=== PATIENT | female | born 1980 | race Caucasian/White ===

== ENCOUNTER → 2021-07-30 | Outpatient (CLI) | payer MEDICARE, SELFPAY | END | disposition home or self-care (01) | PROVIDERS: Referring Provider Physician Assistant; Visit Provider Physician Assistant | DX: R05.9 Cough, unspecified (principal) | CPT/HCPCS: 87635; U0005; U0003 ==

== ENCOUNTER 2023-05-07 17:29 | Emergency (ER) | payer MEDICARE, MEDICAID, SELFPAY ==
[2023-05-07 17:30] VITALS: BP 106/68; PULSE 91; RESP 16; TEMP 36.6; O2SAT 98; BMI 21.8
[2023-05-07] MEDS: Lidocaine Jelly 2% 20 ML Syringe (URO-JET) 1 APPLIC TOPICAL (20:58)
--- NOTE | 2023-05-07 21:27 | EX.ED.DYSGE1 ---
HPI History of Present Illness Chief Complaint: Rash Informant: patient Onset/Context/Timing Onset: Days (3) Context: Gradual Onset Timing: Continuous Quality: Burning Location: Genitals Worsened by: Palpation Relieved by: Nothing Narrative Narrative: Patient presents with soreness to her external genitalia that has been getting worse over the last 3 days. Patient [facility]. Patient states she was prescribed imiquimod to be placed topically. Patient states she used this once. Patient states that her external genitals became reddened and painful. Patient states they started to open up. Patient denies any discharge or drainage. Patient admits to some burning pain. Patient also admits to some burning with urination. Patient admits to some abdominal cramping and nausea. Patient denies any fevers or chills. [facility] Medical History (Updated 05/07/23 @ 22:[address] Everardo Zhao DO) HPV (human papilloma virus) infection Medical History no medical history Home Medications azithromycin 250 mg tablet (Zithromax Z-Slim) See Rx Instructions PO .COMPLEX #6 tabs 07/30/21 [Rx Last Taken Unknown] amoxicillin 500 mg capsule 500 mg PO Q12H #20 caps 09/17/21 [Rx Last Taken Unknown] lidocaine 4 % topical cream 1 applic topical BID PRN pain #15 grams 05/07/23 [Rx Last Taken Unknown] Allergy/AdvReac Type Severity Reaction Status Date / Time No Known Allergies Allergy Verified 05/07/23 17:33 Surgical History no surgical history no surgical history Social History Smoking Status: Never smoker ROS ROS ED Constitutional Constitutional ED: Denies chills or fever(s) Eyes Eyes: Denies blurry vision or change in vision ENT ENT ED: Denies rhinorrhea or sore throat Cardiovascular Cardiovascular: Denies chest pain or palpitations Respiratory/Chest Respiratory/Chest: Denies cough or dyspnea Gastrointestinal Gastrointestinal: Reports abdominal pain and nausea; Denies vomiting Genitourinary Genitourinary ED: Reports dysuria; Denies hematuria Musculoskeletal Musculoskeletal: Denies back pain or neck pain Integumentary Reports rash; Denies abscess Neurologic Neurologic: Denies headache(s) or weakness Allergic/Immunologic Allergic/Immunologic ED: Denies mouth swelling or urticaria EXAM Physical Exam Const Vital Signs: 05/07/23 17:30 Temperature 98 F Temperature Source Temporal Pulse Rate 91 Respiratory Rate 16 Blood Pressure 106/68 Blood Pressure Mean 80 Pulse Ox 98 Oxygen Delivery Method Room Air Positive well nourished and well developed General Appearance ED: well developed HEENT Reports moist mucous membranes Neck supple and no JVD Resp normal respiratory effort and clear to auscultation bilaterally Cardio regular rate, regular rhythm and no murmurs GI normal to inspection, nondistended, normoactive bowel sounds Palpation: soft and tender suprapubic Narrative: There were some superficial ulcerations on the external genitalia. There is no bleeding noted. There is no vaginal discharge noted. There are some mild tenderness over these sores. Extremity normal to inspection General Extremety ED: Negative for edema or tenderness General Extremity: Negative for edema Neuro oriented x3, CN's II-XII intact bilaterally and no sensory deficits noted Sensorium / Orientation: alert Motor Exam: strength 5/5 throughout Psych mental status grossly normal MDM MDM MDM Narrative Medical decision making narrative: Patient was advised that this is a reaction to the topical medication. Patient does not want to continue with the imiquimod. Patient was given lidocaine jelly here. Patient states it felt better after application of this. Patient will be given a prescription for lidocaine jelly. Patient was given a referral for [facility] for follow-up care. Patient understood and was agreeable with the plan. All questions were answered. Discharge Plan Triage Chief Complaint: Rash ED Provider: Everardo Zhao Dx/Rx/DC Orders Clinical Impression: Side effect of medication, HPV in female Prescriptions: New lidocaine 4 % cream 1 applic topical BID PRN (Reason: pain) Qty: 15 0RF No Action azithromycin [Zithromax Z-Slim] 250 mg tablet See Rx Instructions PO .COMPLEX Qty: 6 0RF Rx Instructions: take 500 mg today (day 1), then 250 mg for 4 days (days 2-5) PO amoxicillin 500 mg capsule 500 mg PO Q12H Qty: 20 0RF Primary Care Provider: Care Physician,No Primary Referrals: Eduardo Beltran MD [Med Staff - Active Staff] - 5-7 Days Care Physician,No Primary [Primary Care Provider] - Disposition Disposition: Home, Self Care
[2023-05-07 22:26] VITALS: BP 138/97; PULSE 72; RESP 15; O2SAT 98
== END 2023-05-07 22:27 | disposition home or self-care (01) ==
PROVIDERS: Emergency Provider Emergency Medicine; Visit Provider Emergency Medicine
DX: A63.0 Anogenital (venereal) warts (principal)
CPT/HCPCS: 99282